=== PATIENT | male | born 1985 | race Caucasian/White ===

== ENCOUNTER 2020-01-22 21:03 | Emergency (ER) | payer OTHER ==
[~2020-01-22] VITALS: Ht 172.7 cm; Wt 81.6 kg
[2020-01-22] MEDS ORDERED: PANTOPRAZOLE 40MG INJ (PROTONIX) (C9113) IV ONE (21:30)
[2020-01-22] MEDS ORDERED: NS 1,000 ML IV ONE (21:30)
[2020-01-22] MEDS ORDERED: ONDANSETRON 4MG/2ML VIAL (J2405) IV ONE (21:30)
[2020-01-22] MEDS ORDERED: KETOROLAC 30 MG/ML VIAL (J1885) IV ONE (21:30)
[2020-01-22 21:31] LABS: BASO % 0.2 % (0.0-1.0); EOS # 0.1 10^3/uL (0.0-0.5); EOS % 1.6 % (0.0-3.0); HEMATOCRIT 47.1 % (42.0-52.0); HEMOGLOBIN 15.9 g/dl (13.5-17.5); LYMPH # 1.8 10^3/uL (1.5-5.0); LYMPH % 22.4 % (24.0-44.0); MEAN CORPUSCULAR HEMOGLOBIN 31.2 pg (27.0-33.0); MEAN CORPUSCULAR HGB CONC 33.8 g/dl (32.0-36.5); MEAN CORPUSCULAR VOLUME 92.5 fl (80.0-96.0); MONO # 0.6 10^3/uL (0.0-0.8); NEUTROPHILS # 5.6 10^3/uL (1.5-8.5); NEUTROPHILS % 68.6 % (36.0-66.0); PLATELET COUNT, AUTOMATED 233 10^3/uL (150-450); RED BLOOD COUNT 5.09 10^6/uL (4.30-6.10); WHITE BLOOD COUNT 8.2 10^3/uL (4.0-10.0)
[2020-01-22 21:41] LABS: INR 1.05; PROTHROMBIN TIME 13.4 SECONDS (11.8-14.0)
--- NOTE | 2020-01-22 22:08 | REPVR ---
PROCEDURE INFORMATION: Exam: US Abdomen Limited, Right Upper Quadrant Exam date and time: 01/22/2020 10:01 PM Age: 34 years old Clinical indication: Abdominal pain; Acute; Additional info: Ruq pain TECHNIQUE: Imaging protocol: Real-time ultrasound of the abdomen with image documentation. Examination was focused on the right upper quadrant. COMPARISON: No relevant prior studies available. FINDINGS: Liver: Normal. No masses. Gallbladder: Hydropic gallbladder. 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 Common bile duct: The common bile duct measures 5.4 mm. No mass or choledocholithiasis. Pancreas: Pancreas obscured by overlying bowel gas. Right kidney: Right kidney measures 10.3 x 5.3 x 5.7 cm. IMPRESSION: Hydropic gallbladder. 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 Electronically signed by: Eusebio Duran On 01/22/2020 22:08:45 PM
[2020-01-22 22:11] LABS: ALBUMIN 4.2 GM/DL (3.2-5.2); ALT/SGPT 108 U/L (12-78); AMYLASE 43 U/L (25-115); BILIRUBIN,DIRECT 1.5 MG/DL (0.0-0.2); LIPASE 73 U/L (73-393); TOTAL PROTEIN 7.5 GM/DL (6.4-8.2)
[2020-01-22] MEDS ORDERED: TRAM50TA2 PO ×2 (23:07→23:11)
[2020-01-22] MEDS ORDERED: ZOFR4TAB16 PO (23:07)
[2020-01-22 23:17] VITALS: BP 116/61
--- NOTE | 2020-01-23 12:14 | ED PDOC ---
Post-Departure Follow-Up us faxed to dr van for fu Lionel Akbar MD Jan 23, 2020 12:14
[2020-01-24 10:20] LABS: HEPATITIS B SURFACE ANTIGEN NEGATIVE (NEGATIVE)
[2020-01-24 10:48] LABS: HEPATITIS B CORE ANTIBODY IGM NEGATIVE (NEGATIVE)
[2020-01-24 10:50] LABS: HEPATITIS A ANTIBODY IGM NEGATIVE (NEGATIVE)
== END 2020-01-22 23:45 | disposition home or self-care (01) ==
LOC: M ED 21:03
DX: R10.11 Right upper quadrant pain (principal); K82.1 Hydrops of gallbladder
CPT/HCPCS: 76705; 80047; 80076; 81001; 82150; 83690; 85025; 85610; 86705; 86709; 86803; 87340; 93041; 96361; 96374; 96375; 99284; C9113; J1885; J2405